=== PATIENT | female | born 1990 | race Two or more races ===

== ENCOUNTER 2021-04-30 00:54 | Emergency (ER) | payer SELFPAY ==
[2021-04-30] MEDS ORDERED: Nitrofurantoin Monohydrate/Macrocrystalline 100 MG Cap PO STA (01:52)
== END 2021-04-30 02:05 | disposition home or self-care (01) ==
LOC: JD.ED 00:54
DX: N39.0 Urinary tract infection, site not specified (principal)
CPT/HCPCS: 81001; 81025; 87086; 87088; 87186; 99283; 99284